=== PATIENT | male | born 1935 | race Caucasian/White ===

== ENCOUNTER 2017-03-21 09:02 | Emergency (ER) | payer MEDICARE ==
[~2017-03-21] VITALS: Ht 182.9 cm; Wt 116.0 kg
[~2017-03-21 09:02] MED LIST: ALUM5LIQ PO; AMLO2.5T PO; ASPI81TA45 PO; CLAR10TA7 OR; CLIN1CAP5 PO; COLC1TAB7 PO; COLE5GRA PO; DIOV320T PO; DIPH25 PO; FIBECAP2 PO; GLUC250C5 PO; INDA2.5T PO; LOTR15T TOP; MOTR200T PO; PROB500T10 PO; TAB-TAB PO; TEMA15CA PO; TERA5CAP3 PO; TYLETAB36 PO; fish oil; hydroxyzine PO
[2017-03-21 09:10] VITALS: BP 135/70; PULSE 75; RESP 16; TEMP 98.2; O2SAT 98
[2017-03-21] MEDS ORDERED: TEMA15CA PO (09:28)
[2017-03-21] MEDS ORDERED: AMLO5TAB2 PO (09:28)
[2017-03-21] MEDS ORDERED: PROB500T8 PO (09:28)
[2017-03-21] MEDS ORDERED: INDA2.5T PO (09:28)
[2017-03-21] MEDS ORDERED: COLE5GRA5 PO (09:28)
[2017-03-21] MEDS ORDERED: TERA5CAP3 PO (09:28)
[2017-03-21] MEDS ORDERED: LOSA100T PO (09:28)
[2017-03-21] MEDS ORDERED: TYLETAB36 PO (09:29)
[2017-03-21] MEDS ORDERED: KETOROLAC TROMETHAMINE 60 MG/2 ML (IM) VIAL IM ONE (09:45)
[2017-03-21] MEDS ORDERED: ORPHENADRINE INJ 60 MG/2 ML AMP IM ONE (09:45)
--- NOTE | 2017-03-21 09:52 | PD ---
HPI Chief Complaint: Pain: Acute or Chronic Time Seen by Provider: 09:29 Travel History International Travel<30 days: No Contact w/Intl Traveler<30days: No Traveled to known affect area: No History of Present Illness HPI 81-year-old male presents to the ED for evaluation of 1 week history of right- sided back pain, radiating down the right leg. Gradual onset. Rated 5/10, worsened by certain motions. Somewhat alleviated by sitting the heating pad or Icy Hot. Patient states that he is moving, endorses recent overuse. Patient denies numbness, tingling, weakness, limitations or range of motion of the lower extremities. Denies acute injury. Denies saddle anesthesia or urinary/ fecal incontinence. Patient endorses one previous similar episode "years ago." At that time he received cortisone injections. He uses a cane to ambulate normally. He is followed by Dr. Young. [facility] Past Medical History Cancer: No Diabetes: No Hepatitis: Yes (HIGH ENZYMES ) Hiatal Hernia: No Hypertension: Yes Medical other: Yes (arthritis which causes back& BOTH KNEES, back pain) Thyroid Disease: No Past Surgical History Pacemaker: No Social History Alcohol Use: Yes (few time a week) Tobacco Use: No Allergies-Medications (Allergen,Severity, Reaction): Coded Allergies: Sulfa (Sulfonamide Antibiotics) (Unverified Allergy, Severe, rash, ) cefadroxil (Unverified Allergy, Severe, rash, 03/21/17) penicillin G (Unverified Allergy, Severe, rash, 03/21/17) Reported Meds & Prescriptions Reported Meds & Active Scripts Active Diclofenac Sodium DR (Diclofenac Sodium) 50 Mg Tabdr 50 Mg PO TID Flexeril (Cyclobenzaprine HCl) 10 Mg Tab 10 Mg PO TID Reported Tylenol-Codeine #4 (Acetaminophen-Codeine) 300-60 mg Tab 1 Tab PO Q4H PRN Colestipol (Colestipol HCl) 5 Gm Pkt 10 Gm PO DAILY 1 packet of granules contains 5 gm of colestipol. Terazosin (Terazosin HCl) 5 Mg Cap 5 Mg PO HS Temazepam 15 Mg Cap 15 Mg PO HS PRN Probenecid 500 Mg Tab 500 Mg PO Q12HR Losartan (Losartan Potassium) 100 Mg Tab 100 Mg PO DAILY Indapamide 2.5 Mg Tab 1 Tab PO DAILY Amlodipine (Amlodipine Besylate) 5 Mg Tab 5 Mg PO DAILY [fish oil] [hydroxyzine] 10 Mg PO TIDPRN Review of Systems Except as stated in HPI: all other systems reviewed are Neg Physical Exam Narrative GENERAL: Well-nourished, well-developed white male in no acute distress. SKIN: Focused skin assessment warm/dry. HEAD: Normocephalic. EYES: No scleral icterus. No injection or drainage. NECK: Supple, trachea midline. No JVD or lymphadenopathy. CARDIOVASCULAR: Regular rate and rhythm without murmurs, gallops, or rubs. RESPIRATORY: Breath sounds equal bilaterally. No accessory muscle use. GASTROINTESTINAL: Abdomen soft, non-tender, nondistended. MUSCULOSKELETAL: No cyanosis, or edema. 5/5 strength of dorsiflexion, plantar flexion, knee and hip flexion bilaterally. Sensation intact to light touch distally. BACK: Nontender without obvious deformity. No CVA tenderness. No midline tenderness to palpation. Mild tenderness to palpation of the right-sided paraspinal musculature in the lumbar area. No tenderness to palpation of the sciatic notch. Data Data Last Documented VS Vital Signs Date Time Temp Pulse Resp B/P (MAP) Pulse Ox O2 Delivery O2 Flow Rate FiO2 03/21/17 10:06 03/21/17 09:10 98.2 75 16 98 Room Air Orders Orders Ketorolac Inj (Toradol Inj) (03/21/17 09:45) Orphenadrine Inj (Norflex Inj) (03/21/17 09:45) Ed Discharge Order (03/21/17 09:56) MDM Medical Decision Making Medical Screen Exam Complete: Yes Emergency Medical Condition: Yes Differential Diagnosis Muscle spasm versus radiculopathy versus osteoarthritis versus strain since other Narrative Course 81-year-old male presents to the ED for evaluation of 1 week history of right- sided back pain, radiating down the right leg. Gradual onset. Rated 5/10, worsened by certain motions. Somewhat alleviated by sitting the heating pad or Icy Hot. Patient states that he is moving, endorses recent overuse. Denies acute injury. No red flag symptoms. Endorses a history of sciatica "years ago " for which he has received cortisone injection. Vitals reviewed. Physical exam reveals equal strength in the bilateral lower extremities. No midline tenderness to palpation. He does have some tenderness to palpation of the paraspinal musculature of the right lumbar area. No tenderness to palpation of the sciatic notch. I suspect this is low back strain. Patient was administered IM Toradol and Norflex. He is prescribed a short course of anti- inflammatories and muscle relaxants. He is cautioned not to drive while taking muscle relaxants and instructed to follow-up with his primary care provider. He is stable and discharged home. Diagnosis Primary Impression: Right-sided low back pain with right-sided sciatica Qualified Codes: M54.41 - Lumbago with sciatica, right side Additional Impression: Low back strain Qualified Codes: S39.012A - Strain of muscle, fascia and tendon of lower back , initial encounter Referrals: Ben Young MD Patient Instructions: General Instructions, Low Back Strain (ED), Sciatica (ED) Additional Instructions: Rest, hydrate. Return to normal, gentle activities as tolerated. A mixture of rest and activity as best for back pain. Begin taking anti-inflammatories tomorrow. Take muscle relaxants every 8 hours as needed for spasm. Do not drive while taking muscle relaxants. Follow-up with Dr. Young as discussed. Return to the ED for any urgent or emergent medical condition. Med/Other Pt SpecificInfo: Prescription(s) given Scripts Diclofenac Sodium (Diclofenac Sodium DR) 50 Mg Tabdr 50 MG PO TID for Pain, #15 TAB 0 Refills Prov: Bernie Hardin MD 03/21/17 Cyclobenzaprine (Flexeril) 10 Mg Tab 10 MG PO TID for Muscle Spasm, #15 TAB 0 Refills Prov: Bernie Hardin MD 03/21/17 Disposition: 01 DISCHARGE HOME Condition: Stable Scarlet Yañez Mar 21, 2017 09:52
[2017-03-21] MEDS ORDERED: DICL50TA3 PO (09:55)
[2017-03-21] MEDS ORDERED: CYCL10TA PO (09:55)
== END 2017-03-21 10:07 | disposition home or self-care (01) ==
LOC: PHEFT 09:02
DX: M54.41 Lumbago with sciatica, right side (principal); S39.012A Strain of muscle, fascia and tendon of lower back, initial encounter; X50.0XXA Overexertion from strenuous movement or load, initial encounter; Y93.E6 Activity, residential relocation; Y92.009 Unspecified place in unspecified non-institutional (private) residence as the place of occurrence of the external cause
CPT/HCPCS: 96372; 99284; J1885; J2360

== ENCOUNTER 2017-09-17 10:16 | Emergency (ER) | payer MEDICARE ==
[~2017-09-17] VITALS: Ht 182.9 cm; Wt 115.0 kg
[~2017-09-17 10:16] MED LIST changes: -ALUM5LIQ PO; -AMLO2.5T PO; +AMLO5TAB2 PO; -ASPI81TA45 PO; -CLAR10TA7 OR; -CLIN1CAP5 PO; -COLC1TAB7 PO; -COLE5GRA PO; +COLE5GRA5 PO; +CYCL10TA PO; +DICL50TA3 PO; -DIOV320T PO; -DIPH25 PO; -FIBECAP2 PO; -GLUC250C5 PO; +LOSA100T PO; -LOTR15T TOP; -MOTR200T PO; -PROB500T10 PO; +PROB500T8 PO; -TAB-TAB PO
[2017-09-17 10:31] VITALS: BP 143/72; PULSE 99; RESP 16; TEMP 98.2; O2SAT 97
[2017-09-17] MEDS ORDERED: KETOROLAC TROMETHAMINE 60 MG/2 ML (IM) VIAL IM ONE (11:15)
[2017-09-17] MEDS ORDERED: ORPHENADRINE INJ 60 MG/2 ML AMP IM ONE (11:15)
[2017-09-17] MEDS ORDERED: CYCL10TA PO (11:19)
[2017-09-17] MEDS ORDERED: DICL50TA3 PO (11:19)
--- NOTE | 2017-09-17 11:20 | PD ---
HPI Chief Complaint: Musculoskeletal Complaint Time Seen by Provider: 10:43 Travel History International Travel<30 days: No Contact w/Intl Traveler<30days: No Traveled to known affect area: No History of Present Illness HPI This is an 82-year-old male with right sided low back pain 2 weeks. He reports he injured the back when he bent forward helping lift up his neighbor from the floor. He felt immediate pain in the right low back which he believes is a pulled muscle. He has had right-sided low back pain since that time. He denies fever, urinary symptoms/hematuria, incontinence, saddle anesthesia, paresthesia or weakness of the extremities. He reports he he has had back issues for "40 years". He reports this pain is aching, worse with movement, relieved with rest. Over the last several days he reports the pain is now radiating into the right buttocks and upper thigh. Reports similar pain in the past and is requesting "the same medicines I got last time". Symptom severity is moderate. Denies kidney disease. PFSH Past Medical History Cancer: No Diabetes: No Hepatitis: Yes (HIGH ENZYMES ) Hiatal Hernia: No Hypertension: Yes Medical other: Yes (arthritis which causes back& BOTH KNEES) Thyroid Disease: No Past Surgical History Pacemaker: No Social History Alcohol Use: Yes (few time a week) Tobacco Use: No Substance Use: No Allergies-Medications (Allergen,Severity, Reaction): Coded Allergies: Sulfa (Sulfonamide Antibiotics) (Unverified Allergy, Severe, rash, 09/17/17 ) cefadroxil (Unverified Allergy, Severe, rash, 09/17/17) penicillin G (Unverified Allergy, Severe, rash, 09/17/17) Reported Meds & Prescriptions Reported Meds & Active Scripts Active Diclofenac Sodium DR (Diclofenac Sodium) 50 Mg Tabdr 50 Mg PO TID Flexeril (Cyclobenzaprine HCl) 10 Mg Tab 10 Mg PO TID Reported Tylenol-Codeine #4 (Acetaminophen-Codeine) 300-60 mg Tab 1 Tab PO Q4H PRN Colestipol (Colestipol HCl) 5 Gm Pkt 10 Gm PO DAILY 1 packet of granules contains 5 gm of colestipol. Terazosin (Terazosin HCl) 5 Mg Cap 5 Mg PO HS Temazepam 15 Mg Cap 15 Mg PO HS PRN Probenecid 500 Mg Tab 500 Mg PO Q12HR Losartan (Losartan Potassium) 100 Mg Tab 100 Mg PO DAILY Indapamide 2.5 Mg Tab 1 Tab PO DAILY Amlodipine (Amlodipine Besylate) 5 Mg Tab 5 Mg PO DAILY [fish oil] [hydroxyzine] 10 Mg PO TIDPRN Review of Systems Except as stated in HPI: all other systems reviewed are Neg General / Constitutional: No: Fever HENT: No: Headaches Cardiovascular: No: Chest Pain or Discomfort Respiratory: No: Shortness of Breath Gastrointestinal: No: Abdominal Pain Genitourinary: No: Dysuria Neurologic: No: Weakness Physical Exam Narrative GENERAL: Alert and well-appearing 82-year-old male. Ambulates with a steady gait. SKIN: Warm and dry. HEAD: Normocephalic. EYES: No injection or drainage. NECK: Supple, trachea midline. CARDIOVASCULAR: Regular rate and rhythm without murmurs, gallops, or rubs. RESPIRATORY: Breath sounds equal bilaterally. No accessory muscle use. GASTROINTESTINAL: Abdomen soft, non-tender, nondistended. MUSCULOSKELETAL: No cyanosis, or edema. 5/5 strength of dorsiflexion, plantar flexion, knee and hip flexion bilaterally. Sensation intact to light touch distally. Ambulates with a steady gait. BACK: Nontender without obvious deformity. No CVA tenderness. No midline tenderness to palpation. Mild tenderness to palpation of the right-sided paraspinal musculature in the lumbar area. Mild tenderness over the right sacroiliac joint. Data Data Last Documented VS Vital Signs Date Time Temp Pulse Resp B/P (MAP) Pulse Ox O2 Delivery O2 Flow Rate FiO2 09/17/17 10:31 98.2 99 16 143/72 (95) 97 MDM Medical Decision Making Medical Screen Exam Complete: Yes Emergency Medical Condition: Yes Differential Diagnosis Sciatica, lumbar strain, herniated disc, compression fracture Narrative Course 82-year-old male with right-sided low back pain after mechanical injury several weeks prior. He has a normal neurologic exam. No midline spine tenderness. He has normal strength and sensation in his lower extremities. He was given a shot of Toradol and Norflex. He will be discharged home with a short dose of NSAIDs and muscle relaxers and instructed to follow-up with his primary care doctor this week. Diagnosis Primary Impression: Lumbar strain Qualified Codes: S39.012A - Strain of muscle, fascia and tendon of lower back , initial encounter Referrals: Primary Care Physician Additional Instructions: Stopped taking Tylenol 4. New medication as directed. Take with food. Follow-up with your primary doctor this week for recheck. Return to the emergency department if you have new or worsening symptoms. Scripts Diclofenac Sodium DR (Diclofenac Sodium DR) 50 Mg Tabdr 50 MG PO TID for Pain, #15 TAB 0 Refills Prov: Alysia Chauhan 09/17/17 Cyclobenzaprine (Flexeril) 10 Mg Tab 10 MG PO TID for Muscle Spasm, #15 TAB 0 Refills Prov: Alysia Chauhan 09/17/17 Disposition: 01 DISCHARGE HOME Condition: Stable Alysia Chauhan Sep 17, 2017 11:20
== END 2017-09-17 11:37 | disposition home or self-care (01) ==
LOC: PHEFT 10:16
DX: S39.012A Strain of muscle, fascia and tendon of lower back, initial encounter (principal); I10 Essential (primary) hypertension; Z79.899 Other long term (current) drug therapy; Z88.2 Allergy status to sulfonamides; Z88.0 Allergy status to penicillin; Z88.8 Allergy status to other drugs, medicaments and biological substances; X50.0XXA Overexertion from strenuous movement or load, initial encounter
CPT/HCPCS: 96372; 99283; J1885; J2360